=== PATIENT | male | born 1995 | race Caucasian/White ===

== ENCOUNTER 2021-05-10 03:15 | Emergency (ER) | payer SELFPAY ==
[~2021-05-10] VITALS: Ht 177.8 cm; Wt 97.5 kg
[2021-05-10 03:15] VITALS: BP 137/91
--- NOTE | 2021-05-10 03:15 | NUR ---
[place] DAVIDSON. TAKEN TO CHAIR C
--- NOTE | 2021-05-10 04:14 | NUR ---
PATIENT BIB [employer]. PATIENT EXAMINED BY DR. BLAKE. PATIENT MEDICALLY CLEARED AND RELEASED IN CUSTODY IN STABLE CONDITION. ORIGINAL PRE-BOOK FORM GIVEN TO OFFICER JUAN, #[id number].
== END 2021-05-10 04:14 ==
LOC: MED 03:15
DX: R03.0 Elevated blood-pressure reading, without diagnosis of hypertension (principal); F10.129 Alcohol abuse with intoxication, unspecified; Z02.89 Encounter for other administrative examinations; Z04.1 Encounter for examination and observation following transport accident; V43.52XA Car driver injured in collision with other type car in traffic accident, initial encounter; Y93.89 Activity, other specified; Y92.89 Other specified places as the place of occurrence of the external cause; Y99.8 Other external cause status
CPT/HCPCS: 99283